=== PATIENT | male | born 1985 | race American Indian/Alaskan Native ===

== ENCOUNTER 2019-02-27 12:59 | Emergency (ER) | payer OTHER ==
[~2019-02-27] VITALS: Ht 175.3 cm; Wt 81.7 kg
[2019-02-27] MEDS ORDERED: Ultram50 MG PO (14:20)
== END 2019-02-27 14:29 | disposition home or self-care (01) ==
LOC: ER 12:59
DX: M25.531 Pain in right wrist (principal); M79.644 Pain in right finger(s); Z88.5 Allergy status to narcotic agent; F17.210 Nicotine dependence, cigarettes, uncomplicated
CPT/HCPCS: 29125; 73110; 99283-25

== ENCOUNTER 2020-01-04 12:39 | Emergency (ER) | payer SELFPAY ==
[~2020-01-04] VITALS: Ht 175.3 cm; Wt 86.2 kg
[~2020-01-04 12:39] MED LIST: Ultram50 MG PO
[2020-01-04] MEDS ORDERED: ALBU90OI INH (13:04)
== END 2020-01-04 13:27 | disposition home or self-care (01) ==
LOC: ER 12:39
DX: R51 Headache (principal); J45.909 Unspecified asthma, uncomplicated; F17.200 Nicotine dependence, unspecified, uncomplicated; Z88.5 Allergy status to narcotic agent
CPT/HCPCS: 99281

== ENCOUNTER 2020-10-11 03:12 | Emergency (ER) | payer OTHER ==
[~2020-10-11] VITALS: Ht 175.3 cm; Wt 83.9 kg
[~2020-10-11 03:12] MED LIST changes: +ALBU90OI INH; +ONDA4ODT MM
== END 2020-10-11 04:02 | disposition home or self-care (01) ==
LOC: ER 03:12
DX: M25.531 Pain in right wrist (principal); J45.909 Unspecified asthma, uncomplicated; F17.210 Nicotine dependence, cigarettes, uncomplicated; Z88.5 Allergy status to narcotic agent; Z79.899 Other long term (current) drug therapy
CPT/HCPCS: 73100; 99283-25